=== PATIENT | female | born 1975 | race Hispanic/Latino ===

== ENCOUNTER 2017-03-22 08:06 | Emergency (ER) | payer BC ==
[~2017-03-22] VITALS: Ht 157.5 cm; Wt 80.1 kg
[~2017-03-22 08:06] MED LIST: DILAUDID2 MG PO; FA-80.8 MG PO; FERROUS SULFAT325 MG PO; IBUPROFEN800 MG PO; NAPROSYN500 MG PO; OMEPRAZOLE20 MG PO; VITAMIN B-625 MG PO; VITAMIN B122500 MCG PO
[2017-03-22 08:59] LABS: HEMATOCRIT 39.6 % (36.0-46.0); MCHC 34.1 G/DL (30.0-36.0); MEAN PLAT.VOLUME 10.4 uM^3 (9.5-12.4); PLATELET COUNT 218 K/uL (156-360); RBC DIS.WIDTH-SD 41.5 % (39-53); WHITE BLOOD COUNT 3.9 K/uL (4.1-10.2)
[2017-03-22 09:09] LABS: CHLORIDE 110 mEq/L (99-109); POTASSIUM 3.5 mEq/L (3.7-5.4); SODIUM 141 mEq/L (136-147)
[2017-03-22 09:11] LABS: GLUCOSE 103 mg/dL (70-99)
[2017-03-22 09:12] LABS: ANION GAP 13 MEQ/L (2-14)
[2017-03-22 09:13] LABS: TOTAL BILIRUBIN 0.4 mg/dL (0.0-1.0)
[2017-03-22 09:15] LABS: ALKALINE PHOSPHATASE 52 IU/L (3-129); GFR ESTIMATE (CALCULATED) > 59 mL/min/
[2017-03-22 09:16] LABS: UREA NITROGEN (BUN) 11 mg/dL (9-23)
[2017-03-22 09:17] LABS: DIRECT BILIRUBIN 0.2 mg/dL (0.0-0.3)
[2017-03-22 09:18] LABS: LIPASE 51 U/L (1.0-51.0)
[2017-03-22 09:21] LABS: TROP-I INTERPRETATION NEGATIVE; TROPONIN-I < 0.01 ng/mL (0.0-0.30)
[2017-03-22] MEDS ORDERED: PROVENTIL HFA6.7 GM IH (12:47)
[2017-03-22] MEDS ORDERED: PREDNISONE20 MG PO (12:47)
[2017-03-22 13:01] VITALS: BP 146/95
== END 2017-03-22 13:03 | disposition home or self-care (01) ==
LOC: EME 08:06
PROVIDERS: Emergency Medicine
DX: J45.909 Unspecified asthma, uncomplicated (principal); R91.8 Other nonspecific abnormal finding of lung field; R10.11 Right upper quadrant pain; R53.83 Other fatigue
CPT/HCPCS: 71020; 71250; 80048; 80076; 83690; 84484; 85027; 85379; 93005; 94640; 99281; 99283

== ENCOUNTER → 2017-11-04 | Outpatient (CLI) | payer BC ==
[~2017-11-04] MED LIST changes: +PREDNISONE20 MG PO; +PROVENTIL HFA6.7 GM IH
== END | disposition home or self-care (01) ==
LOC: CDC 14:06
DX: R94.31 Abnormal electrocardiogram [ECG] [EKG] (principal)
CPT/HCPCS: 93000

== ENCOUNTER 2017-11-14 10:11 | Day surgery (SDC) | payer BC, OTHER ==
[~2017-11-14] VITALS: Ht 154.9 cm; Wt 79.3 kg
[~2017-11-14 10:11] MED LIST changes: +NORVASC5 MG PO
[2017-11-14 10:42] VITALS: BP 131/84
[2017-11-14 10:48] LABS: BASOPHIL (%) 0.5 % (0-1); EOSINOPHIL (%) 2.5 % (0-5); EOSINOPHIL COUNT 0.1 K/uL (0-0.3); HEMATOCRIT 39.9 % (36.0-46.0); LYMPHOCYTE (%) 35.7 % (15-42); LYMPHOCYTE COUNT 1.4 K/uL (1.0-2.8); MCH 30.6 PG (29.0-34.0); MCHC 35.1 G/DL (30.0-36.0); MCV 87.3 FL (83-99); MONOCYTE (%) 6.3 % (3-12); MONOCYTE COUNT 0.3 K/uL (0-0.8); NEUTROPHIL COUNT 2.2 K/uL (1.8-6.4); PLATELET COUNT 245 K/uL (156-360); RBC DIS.WIDTH-CV 12.9 % (11.8-14.6); RBC DIS.WIDTH-SD 40.7 % (39-53); RED BLOOD COUNT 4.57 M/uL (3.80-5.20)
[2017-11-14] MEDS ORDERED: COLACE100 MG PO (14:25)
[2017-11-14] MEDS ORDERED: HYDROCODON-ACE1 EAC7 PO (14:25)
[2017-11-14] MEDS ORDERED: MOTRIN600 MG PO (14:25)
[2017-11-14 15:21] VITALS: BP 131/77
[2017-11-14 16:10] VITALS: BP 140/77
== END 2017-11-14 16:20 | disposition home or self-care (01) ==
LOC: SDC 10:11
PROVIDERS: Thoracic Surgery (Cardiothoracic Vascular Surgery)
PROC: 07B74ZX Excision of Thorax Lymphatic, Percutaneous Endoscopic Approach, Diagnostic (ICD-10-PCS; principal; 2017-11-14)
DX: R91.1 Solitary pulmonary nodule (principal); R59.0 Localized enlarged lymph nodes; I10 Essential (primary) hypertension; K21.9 Gastro-esophageal reflux disease without esophagitis
CPT/HCPCS: 85025; 85610; 86850; 86900; 86901; 88305; 88312; 88313; J0690; J1100; J1170; J1885; J2250; J2405; J2710; J3010; J7643; S0020